=== PATIENT | male | born 1975 | race Caucasian/White ===

== ENCOUNTER 2018-07-30 19:50 | Emergency (ER) | payer SELFPAY ==
--- NOTE | 2018-07-30 20:19 | EDM.PDOC ---
ED HPI GENERAL MEDICAL PROBLEM - General Chief Complaint: Skin Complaint Stated Complaint: PT HAS RASH ON BODY Time Seen by Provider: 07/30/18 19:58 Source of Information: Reports: Patient History Limitations: Reports: No Limitations - History of Present Illness INITIAL COMMENTS - FREE TEXT/NARRATIVE: HISTORY AND PHYSICAL: History of present illness: Patient is a 42-year-old male who presents to the emergency room with complaints of rash possibly due to a bug bite. He states he had noted some area of blisters to the mid left back which became very irritating and itchy. He states this has now developed into a rash going across his left axilla and to the anterior left chest. He states he is concerned he may have a bug bite. Patient did have chickenpox as a child. He denies any health history or concerns. Review of systems: As per history of present illness and below otherwise all systems reviewed and negative. Past medical history: As per history of present illness and as reviewed below otherwise noncontributory. Surgical history: As per history of present illness and as reviewed below otherwise noncontributory. Social history: See social history for further information Family history: As per history of present illness and as reviewed below otherwise noncontributory. Physical exam: General: Well-developed and well-nourished 42-year-old male. Alert and oriented. Nontoxic appearing and in no acute distress. HEENT: Atraumatic, normocephalic, pupils equal and reactive bilaterally, negative for conjunctival pallor or scleral icterus, mucous membranes moist, TMs normal bilaterally, throat clear, neck supple, nontender, trachea midline. No drooling or trismus noted. No meningeal signs. No hot potato voice noted. Lungs: Clear to auscultation, breath sounds equal bilaterally, chest nontender. Heart: S1S2, regular rate and rhythm without overt murmur Abdomen: Soft, nondistended, nontender. Negative for masses or hepatosplenomegaly. Negative for costovertebral tenderness. Pelvis: Stable nontender. Genitourinary: Deferred. Rectal: Deferred. Skin: Healing/scabbed blisters to the left mid thoracic back with new bubbling blisters wrapping around the dermatome to the left anterior chest/upper abdomen. Otherwise skin is intact, warm, dry. No lesions or rashes noted. Extremities: Atraumatic, negative for cords or calf pain. Neurovascular unremarkable. Neuro: Awake, alert, oriented. Cranial nerves II through XII unremarkable. Cerebellum unremarkable. Motor and sensory unremarkable throughout. Exam nonfocal. Notes: We did discuss possible predisposing factors that would have led to shingles such as HIV or malignancy. He denies any concern of these but is agreeable to following up closely with a primary care provider. We discussed supportive care measures along with contact precautions. He voices understanding and is agreeable to plan of care. Denies any further questions or concerns at this time. Diagnostics: None Therapeutics: None Prescription: Acyclovir Bradley (#30) Impression: Shingles Plan: 1. Please take the medication as prescribed. 2. Tylenol and/or ibuprofen as needed for pain management. Bradley for moderate to severe pain; may cause drowsiness. You may use Benadryl to help alleviate any itching. Avoid any hot showers as this can increase the itching. 3. As we discussed please follow-up with a primary care provider on Thursday. Return to the ED as needed and as discussed. Definitive disposition and diagnosis as appropriate pending reevaluation and review of above. - Related Data Allergies Allergy/AdvReac Type Severity Reaction Status Date / Time No Known Allergies Allergy Verified 07/30/18 20:05 Home Meds: Home Meds . [No Known Home Meds] 07/30/18 [History] Past Medical History HEENT History: Reports: None Cardiovascular History: Reports: None Respiratory History: Reports: Pneumothorax - Infectious Disease History Infectious Disease History: Reports: Chicken Pox - Past Surgical History HEENT Surgical History: Reports: None Cardiovascular Surgical History: Reports: None Social & Family History - Tobacco Use Smoking Status *Q: Former Smoker Used Tobacco, but Quit: Yes Month/Year Tobacco Last Used: 2016 - Recreational Drug Use Recreational Drug Use: No ED ROS GENERAL - Review of Systems Review Of Systems: ROS reveals no pertinent complaints other than HPI. ED EXAM, SKIN/RASH Exam: See Below (See dictation) Course - Vital Signs Last Recorded V/S: Last Vital Signs Temp 98 F 07/30/18 19:57 Pulse 79 07/30/18 19:57 Resp 18 07/30/18 19:57 BP 135/84 07/30/18 19:57 Pulse Ox 97 07/30/18 19:57 Departure - Departure Time of Disposition: 20:18 Disposition: Home, Self-Care 01 Clinical Impression: Shingles Qualifiers: Herpes zoster complications: without complications Qualified Code(s): B02.9 - Zoster without complications - Discharge Information Instructions: Shingles, [id number] Referrals: PCP,None [Primary Care Provider] - Forms: ED Department Discharge Additional Instructions: The following information is given to patients seen in the emergency department who are being discharged to home. This information is to outline your options for follow-up care. We provide all patients seen in our emergency department with a follow-up referral. The need for follow-up, as well as the timing and circumstances, are variable depending upon the specifics of your emergency department visit. If you don't have a primary care physician on staff, we will provide you with a referral. We always advise you to contact your personal physician following an emergency department visit to inform them of the circumstance of the visit and for follow-up with them and/or the need for any referrals to a consulting specialist. The emergency department will also refer you to a specialist when appropriate. This referral assures that you have the opportunity for follow-up care with a specialist. All of these measure are taken in an effort to provide you with optimal care, which includes your follow-up. Under all circumstances we always encourage you to contact your private physician who remains a resource for coordinating your care. When calling for follow-up care, please make the office aware that this follow-up is from your recent emergency room visit. If for any reason you are refused follow-up, please contact the [facility] Emergency Department at and asked to speak to the emergency department charge nurse. [facility] [address] [place] [id number] [address] [address] 1. Please take the medication as prescribed. 2. Tylenol and/or ibuprofen as needed for pain management. Bradley for moderate to severe pain; may cause drowsiness. You may use Benadryl to help alleviate any itching. Avoid any hot showers as this can increase the itching. 3. As we discussed please follow-up with a primary care provider on Thursday. Return to the ED as needed and as discussed.
== END 2018-07-30 20:31 | disposition home or self-care (01) ==
LOC: MW.ED 19:50
DX: B02.9 Zoster without complications (principal); Z87.891 Personal history of nicotine dependence
CPT/HCPCS: 99282

== ENCOUNTER 2021-11-12 21:38 | Emergency (ER) | payer SELFPAY ==
[2021-11-12] MEDS ORDERED: Ketorolac 30 MG/ML SDV IM ONE (21:47)
[2021-11-12] MEDS ORDERED: Cyclobenzaprine 10 MG Tab PO ONE (21:47)
[2021-11-12] MEDS ORDERED: Ketorolac 30 MG/ML SDV IVPUSH ONE (21:58)
== END 2021-11-12 23:17 | disposition home or self-care (01) ==
LOC: MW.ED 21:38
DX: S20.212A Contusion of left front wall of thorax, initial encounter (principal); Z88.0 Allergy status to penicillin; W50.0XXA Accidental hit or strike by another person, initial encounter
CPT/HCPCS: 71101; 96374; 99284; A9270; J1885